=== PATIENT | male | born 1970 | race African-American/Black ===

== ENCOUNTER 2018-10-22 16:04 | Emergency (ER) | payer OTHER ==
[2018-10-22 16:16] VITALS: BP 109/66; PULSE 79; TEMP 97.6; BMI 28.1
--- NOTE | 2018-10-22 16:25 | PDOC ---
History of Present Illness - General Chief Complaint: Injury Stated Complaint: LEFT THIGH LACERATION Time Seen by Provider: 10/22/18 16:13 History Source: Patient Exam Limitations: No Limitations - History of Present Illness Initial Comments: 48 yo M with no past medical history presents to the emergency department with laceration to the anterior left thigh after an intact piece of glass fell onto his thigh. Per the patient, he states he was moving a glass furniture piece when it made contact with his skin. Denies the glass shattering. Denies loss of sensation, loss of motor function, fevers, chills, discoloration of the skin, and leg swelling. Allergies: NKDA Shx: None Social: Denies tobacco, alcohol, and substance abuse. Past History - Past Medical History Allergies/Adverse Reactions: Allergies Allergy/AdvReac Type Severity Reaction Status Date / Time No Known Drug Allergies Allergy Verified 10/22/18 16:07 pollen extracts Allergy Verified 10/22/18 16:07 Home Medications: Ambulatory Orders NK [No Known Home Medication] 10/22/18 COPD: No - Suicide/Smoking/Psychosocial Hx Smoking History: Current every day smoker Have you smoked in the past 12 months: Yes Number of Cigarettes Smoked Daily: 3 Information on smoking cessation initiated: Yes 'Breaking Loose' booklet given: 04/22/14 Hx Alcohol Use: No Drug/Substance Use Hx: Yes Substance Use Type: None Review of Systems - Review of Systems Able to Perform ROS?: Yes Is the patient limited [place] proficient: No Constitutional: No: Chills, Diaphoresis, Fever, Weakness HEENTM: No: Eye Pain, Recent change in vision, Ear Pain, Nose Pain, Throat Pain , Mouth Pain Respiratory: No: Cough, Shortness of Breath, SOB with Exertion Cardiac (ROS): No: Chest Pain, Lightheadedness, Palpitations, Syncope, Chest Tightness ABD/GI: No: Constipated, Diarrhea, Nausea, Rectal Bleeding, Vomiting, Tarry Stools : No: Burning, Dysuria, Hematuria, Incontinence, Testicular Swelling Musculoskeletal: No: Back Pain, Joint Pain, Neck Pain Integumentary: No: Bruising, Erythema, Rash Neurological: No: Headache, Numbness, Tingling, Tremors Psychiatric: No: Change in Appetite Endocrine: No: Unexplained Weight Gain Hematologic/Lymphatic: No: Anemia *Physical Exam - Vital Signs Last Vital Signs Temp Pulse Resp BP Pulse Ox 97.6 F 79 18 109/66 99 10/22/18 16:04 10/22/18 16:04 10/22/18 16:04 10/22/18 16:04 10/22/18 16:04 - Physical Exam General Appearance: Yes: Nourished, Appropriately Dressed. No: Apparent Distress, Intoxicated HEENT: positive: EOMI, HUBER, Normal Voice, Symmetrical, Pharynx Normal, Hearing Grossly Normal. negative: Pale Conjunctivae, Scleral Icterus (R), Scleral Icterus (L), Muffled/Hoarse voice, Pharyngeal Erythema, Tonsillar Exudate, Tonsillar Erythema, Nasal Congestion, Rhinorrhea, Sinus Tenderness, Excessive drooling Neck: positive: Trachea midline, Supple. negative: Tender, Lymphadenopathy (R) , Lymphadenopathy (L), Tender lateral, Tender midline Respiratory/Chest: positive: Lungs Clear, Normal Breath Sounds. negative: Chest Tender, Respiratory Distress, Accessory Muscle Use, Crackles, Rales, Rhonchi, Stridor, Wheezing Cardiovascular: positive: Regular Rhythm, Regular Rate, S1, S2. negative: Systolic Murmur Gastrointestinal/Abdominal: positive: Normal Bowel Sounds, Flat, Soft. negative : Tender, Distended, Guarding, Rebound Lymphatic: negative: Adenopathy Musculoskeletal: positive: Normal Inspection. negative: CVA Tenderness, Vertebral Tenderness Extremity: positive: Normal Capillary Refill, Normal Range of Motion. negative : Normal Inspection (left anterior thigh simple laceration with clean edges 2.5cmx0.5 cm. ), Tender, Swelling, Calf Tenderness Integumentary: positive: Normal Color, Dry, Warm Neurologic: positive: television news video editor II-XII NML intact, Fully Oriented, Alert, Normal Mood/ Affect, Normal Response, Motor Strength 5/5. negative: EOM Palsy, Facial Droop , Sensory Deficit Procedures - Laceration/Wound Repair Left Anterior Thigh Wound Length: to 2.5 cm Wound Explored: clean Wound's Depth, Shape: superficial Irrigated w/ Saline: Yes Betadine Prep: Yes Anesthesia: 1% Lidocaine Amount of Anesthetic (ccs): 5 Wound Debrided: minimal Wound Repaired With: Sutures Suture Size/Type: 3:0 Number of Sutures: 5 Sterile Dressing Applied: Yes Splint Applied: No Sling Applied: No Medical Decision Making - Medical Decision Making 10/22/18 17:23 48 yo M with no past medical history presents to the emergency department with laceration to the anterior left thigh after an intact piece of glass fell onto his thigh. Initial vitals; Initial Vital Signs Temp Pulse Resp BP Pulse Ox 97.6 F 79 18 109/66 99 10/22/18 16:04 10/22/18 16:04 10/22/18 16:04 10/22/18 16:04 10/22/18 16:04 Work up: laceration. patient does not recall when last tetanus was but was >5 years ago. Patient to receive tetanus. Laceration repaired with 3-0 sutures (refer to procedure note). will follow up with PMD Dispo: Discharge *DC/Admit/Observation/Transfer Diagnosis at time of Disposition: Laceration - Discharge Dispostion Disposition: HOME Condition at time of disposition: Stable Decision to Admit order: No - Referrals Referrals: [facility] [place] [Provider Group] - Patient Instructions Printed Discharge Instructions: DI for Laceration Repair Additional Instructions: you were seen for the evaluation of your laceration. please have the sutures removed by our ED, another ED, or your primary medical doctor in 10-14 days for removal. please return if you have fever, chills, red streaks from the site of suturing, and if the sutures fall off early. thank you. - Post Discharge Activity
--- NOTE | 2018-10-22 16:36 | PDOC ---
Attending Attestation - Resident Resident Name: Robin Woods - ED Attending Attestation I have performed the following: I have examined & evaluated the patient, The case was reviewed & discussed with the resident, I agree w/resident's findings & plan, Exceptions are as noted - HPI HPI: 10/22/18 16:34 48y M no mphx presents with L thigh laceratin - pt was carrying a large plate of galss that broke while they were carrying it and a peice fell on the floor and cut his leg on the way down. no other injuries. glass did not shatter, only broke in large peices. no assoc numbnes/tingling/wkaness. last tetanus was a long time ago exam: L thigh: approx 2cm laceration, superficial, clean amrgins, no fb, no active bleeding will close laceration with sutures after irrigation will update tetanus - Physicial Exam PE: 10/24/18 16:39 see above - Medical Decision Making laceration closed by dr. woods under my supervision - good apprximation using simple interrupted bacitracin applied return precautions were ddiscussed
[2018-10-22] MEDS ORDERED: DIPHTH,PERTUSS(ACELL),TET 0.5 ML DISP.SYRIN IM ONE ×2 (17:27→17:35)
== END 2018-10-22 17:45 | disposition home or self-care (01) ==
LOC: FER 16:04
PROC: 0HQJXZZ Repair Left Upper Leg Skin, External Approach (ICD-10-PCS; principal; 2018-10-22)
PROC: 3E0234Z Introduction of Serum, Toxoid and Vaccine into Muscle, Percutaneous Approach (ICD-10-PCS; 2018-10-22)
DX: S71.112A Laceration without foreign body, left thigh, initial encounter (principal); W25.XXXA Contact with sharp glass, initial encounter; Y93.89 Activity, other specified; Y92.9 Unspecified place or not applicable; F17.210 Nicotine dependence, cigarettes, uncomplicated
CPT/HCPCS: 90715; 99283-25

== ENCOUNTER 2021-04-21 23:19 | Emergency (ER) | payer BC ==
[2021-04-21 23:25] VITALS: TEMP 98.1; BMI 28.1
[2021-04-21] MEDS ORDERED: morphine SULFATE IMMEDIATE RELEASE 30 MG TAB PO ONE (23:39)
[2021-04-21] MEDS ORDERED: MAGNESIUM SULF 50% (8.12 MEQ/2 ML-1 GM VIAL) IVPB ONE (23:43)
[2021-04-21] MEDS ORDERED: SODIUM CHLORIDE 0.9% 500 ML INFUS.BAG IV ONE (23:43)
[2021-04-21] MEDS ORDERED: morphine SULFATE IMMEDIATE RELEASE 30 MG TAB ONE (23:53)
[2021-04-21] MEDS ORDERED: MAGNESIUM 1GM/D5W - 2 GM/200 ML IVPB IVPB ONE (23:53)
[2021-04-22 00:48] LABS: BASO % 0.7 % (0-2.0); HEMATOCRIT 37.1 % (35.4-49); HEMOGLOBIN 12.9 GM/dL (11.7-16.9); LYMPH % 33.4 % (8-40); MCH 33.3 pg (25.7-33.7); MCHC 34.9 g/dl (32.0-35.9); MEAN CELL VOLUME 95.5 fl (80-96); MEAN PLT VOLUME 7.5 fl (7.5-11.1); MONO % 6.5 % (3.8-10.2); NEUT % 57.4 % (42.8-82.8); PLATELET COUNT 207 10^3/uL (134-434); RBC 3.88 M/mm3 (4.00-5.60); RDW 14.2 % (11.9-15.9); WHITE BLOOD COUNT 8.8 K/mm3 (4.0-10.0)
[2021-04-22 01:03] LABS: CALCIUM 8.3 mg/dL (8.5-10.1)
[2021-04-22 01:07] LABS: CREATININE 1.3 mg/dL (0.55-1.3)
[2021-04-22 01:09] LABS: BILIRUBIN,TOTAL 0.3 mg/dL (0.2-1); TOT PROT 6.6 g/dl (6.4-8.2)
[2021-04-22] MEDS ORDERED: SODIUM CHLORIDE 0.9% 500 ML INFUS.BAG IV ONE (01:21)
[2021-04-22 01:40] VITALS: BP 107/61; PULSE 71
== END 2021-04-22 01:44 | disposition home or self-care (01) ==
LOC: FER 23:19
PROC: 3E033NZ Introduction of Analgesics, Hypnotics, Sedatives into Peripheral Vein, Percutaneous Approach (ICD-10-PCS; principal; 2021-04-21)
DX: F41.9 Anxiety disorder, unspecified (principal); M62.82 Rhabdomyolysis
CPT/HCPCS: 36415; 80053; 82550; 82553; 85025; 99284-25

== ENCOUNTER 2021-09-04 03:34 | Emergency (ER) | payer BC ==
[2021-09-04 03:40] VITALS: TEMP 98; BMI 28.1
[2021-09-04] MEDS ORDERED: SODIUM CHLORIDE 1,000 ML IV STA ×3 (03:47→06:13)
[2021-09-04 05:48] LABS: BASO % 0.6 % (0-2.0); EOS % 2.7 % (0-4.5); HEMATOCRIT 38.5 % (35.4-49); LYMPH % 32.8 % (8-40); MCH 32.3 pg (25.7-33.7); MCHC 33.8 g/dl (32.0-35.9); MEAN CELL VOLUME 95.7 fl (80-96); MEAN PLT VOLUME 7.9 fl (7.5-11.1); MONO % 8.7 % (3.8-10.2); NEUT % 55.2 % (42.8-82.8); PLATELET COUNT 235 10^3/uL (134-434); RBC 4.02 M/mm3 (4.00-5.60); RDW 14.2 % (11.9-15.9)
[2021-09-04 05:57] LABS: ALBUMIN 3.9 g/dl (3.4-5.0); BLOOD UREA NITROGEN 22.9 mg/dL (7-18); CALCIUM 8.6 mg/dL (8.5-10.1)
[2021-09-04 06:00] LABS: CREATININE 1.1 mg/dL (0.55-1.3)
[2021-09-04 06:02] LABS: BILIRUBIN,TOTAL 0.3 mg/dL (0.2-1); TOT PROT 6.5 g/dl (6.4-8.2)
[2021-09-04 08:01] LABS: ALBUMIN 3.3 g/dl (3.4-5.0); BILIRUBIN,TOTAL 0.5 mg/dl (0.2-1); CALCIUM 7.9 mg/dl (8.5-10); TOT PROT 5.6 g/dl (6.4-8.2)
[2021-09-04 08:38] VITALS: BP 122/69; PULSE 82
== END 2021-09-04 08:39 | disposition home or self-care (01) ==
LOC: FER 03:34
PROC: 3E0337Z Introduction of Electrolytic and Water Balance Substance into Peripheral Vein, Percutaneous Approach (ICD-10-PCS; principal; 2021-09-04)
DX: M62.82 Rhabdomyolysis (principal)
CPT/HCPCS: 36415; 80053; 81003; 82550; 82553; 85025; 99284-25

== ENCOUNTER 2021-09-05 22:22 | Emergency (ER) | payer BC ==
[2021-09-05] MEDS ORDERED: SODIUM CHLORIDE 0.9% 500 ML INFUS.BAG IV ONE ×2 (22:29→23:43)
[2021-09-05 22:31] VITALS: BP 115/67; PULSE 77; TEMP 98.7; BMI 28.1
[2021-09-05 23:08] LABS: INR 1.09 (0.83-1.09); PROTHROMBIN TIME (PATIENT) 12.5 SEC (9.7-13.0)
[2021-09-05 23:15] LABS: ALBUMIN 4.1 g/dl (3.4-5.0); BILIRUBIN,TOTAL 0.5 mg/dl (0.2-1); CALCIUM 8.9 mg/dl (8.5-10); CREATININE 1.1 mg/dl (0.55-1.3); MAGNESIUM 1.9 mg/dL (1.8-2.4); PHOSPHOROUS 3.6 mg/dl (2.5-4.9); TOT PROT 6.5 g/dl (6.4-8.2); URIC ACID 4.3 mg/dl (2.6-7.2)
[2021-09-05 23:48] LABS: BASO % 0.8 % (0-2.0); EOS % 2.5 % (0-4.5); HEMATOCRIT 37.8 % (35.4-49); MCH 32.6 pg (25.7-33.7); MCHC 34.4 g/dl (32.0-35.9); MEAN CELL VOLUME 94.7 fl (80-96); MEAN PLT VOLUME 7.6 fl (7.5-11.1); MONO % 9.5 % (3.8-10.2); NEUT % 49.2 % (42.8-82.8); PLATELET COUNT 234 10^3/uL (134-434); RBC 3.99 M/mm3 (4.00-5.60); RDW 14.5 % (11.9-15.9); VENOUS BASE EXCESS -2.8 mmol/L (-2-2); VENOUS O2 SATURATION 91.5 % (70-80); VENOUS PCO2 37.8 mmHg (38-52); VENOUS PH 7.38 (7.310-7.410); WHITE BLOOD COUNT 6.4 K/mm3 (4.0-10.0)
== END 2021-09-06 00:39 | disposition home or self-care (01) ==
LOC: FER 22:22
DX: M62.82 Rhabdomyolysis (principal)
CPT/HCPCS: 36415; 80053; 81003; 81015; 82550; 82553; 82803; 83735; 84100; 84484; 84550; 85025; 85610; 85730; 87086; 93005; 99284-25

== ENCOUNTER 2021-09-19 00:14 | Emergency (ER) | payer BC ==
[2021-09-19 00:21] VITALS: BP 112/55; PULSE 83; TEMP 97.9; BMI 28.8
[2021-09-19] MEDS ORDERED: SODIUM CHLORIDE 1,000 ML IV ONE ×2 (00:32→00:33)
[2021-09-19 01:34] LABS: BASO % 1.1 % (0-2.0); EOS % 4.4 % (0-4.5); HEMATOCRIT 37.8 % (35.4-49); HEMOGLOBIN 12.9 GM/dL (11.7-16.9); MCH 32.4 pg (25.7-33.7); MEAN CELL VOLUME 95.1 fl (80-96); MEAN PLT VOLUME 7.5 fl (7.5-11.1); MONO % 11.1 % (3.8-10.2); NEUT % 28.4 % (42.8-82.8); PLATELET COUNT 192 10^3/uL (134-434); RBC 3.97 M/mm3 (4.00-5.60); RDW 14.7 % (11.9-15.9); WHITE BLOOD COUNT 5.3 K/mm3 (4.0-10.0)
[2021-09-19 01:51] LABS: ALBUMIN 3.5 g/dl (3.4-5.0); BLOOD UREA NITROGEN 19.8 mg/dL (7-18); CALCIUM 8.1 mg/dL (8.5-10.1); MAGNESIUM 2.2 mg/dL (1.8-2.4)
[2021-09-19 01:55] LABS: CREATININE 1.3 mg/dL (0.55-1.3)
[2021-09-19 01:57] LABS: BILIRUBIN,TOTAL 0.2 mg/dL (0.2-1); TOT PROT 6.2 g/dl (6.4-8.2)
== END 2021-09-19 02:14 | disposition home or self-care (01) ==
LOC: FER 00:14
PROC: 3E0337Z Introduction of Electrolytic and Water Balance Substance into Peripheral Vein, Percutaneous Approach (ICD-10-PCS; principal; 2021-09-19)
DX: M79.10 Myalgia, unspecified site (principal)
CPT/HCPCS: 36415; 80053; 82550; 82553; 83735; 85025; 99284-25

== ENCOUNTER → 2023-06-03 | Emergency (ER) | payer BC ==
[~2023-06-03] MED LIST: KETOROLAC TROMETHAMINE 30 MG/1 ML VIAL IVPUSH ONE; KETOROLAC TROMETHAMINE 30 MG/1 ML VIAL ONE; SODIUM CHLORIDE 1,000 ML IV STA
[2023-06-03 21:22] VITALS: BP 115/85; PULSE 85; RESP 17; TEMP 98.2; BMI 28.1
[2023-06-03 22:20] LABS: HEMATOCRIT 41.6 % (35.4-49); HEMOGLOBIN 13.9 G/dL (11.7-16.9); MCH 32.4 pg (25.7-33.7); MCHC 33.3 g/dl (32.0-35.9); MEAN CELL VOLUME 97.3 fl (80-96); MEAN PLT VOLUME 7.4 fl (7.5-11.1); PLATELET COUNT 206.9 10^3/uL (134-434); RBC 4.28 10^6/uL (4.00-5.60); RDW 14.6 % (11.9-15.9); WHITE BLOOD COUNT 6.3 10^3/uL (4.0-10.8)
[2023-06-03 22:32] LABS: ALBUMIN 4.1 g/dl (3.4-5.0); BILIRUBIN,TOTAL 0.4 mg/dl (0.2-1); CREATININE 1.2 mg/dl (0.6-1.3); POTASSIUM 4.2 mmol/L (3.5-5.1); TOT PROT 5.9 g/dl (6.4-8.2)
[2023-06-03 23:13] LABS: PLATELET ESTIMATE ADEQUATE
== END | disposition left against medical advice (07) ==
LOC: FER 20:20
PROC: 3E0333Z Introduction of Anti-inflammatory into Peripheral Vein, Percutaneous Approach (ICD-10-PCS; principal; 2023-06-03)
PROC: 3E0337Z Introduction of Electrolytic and Water Balance Substance into Peripheral Vein, Percutaneous Approach (ICD-10-PCS; 2023-06-03)
DX: R07.9 Chest pain, unspecified (principal)
CPT/HCPCS: 36415; 71046-TC-FY; 80053; 85027; 93005; 99285-25

== ENCOUNTER 2024-01-12 09:35 | Emergency (ER) | payer BC ==
[2024-01-12 09:49] VITALS: BP 111/60; PULSE 80; RESP 20; TEMP 97.5; BMI 28.1
== END 2024-01-12 10:36 | disposition home or self-care (01) ==
LOC: FER 09:35
PROC: 0XQLXZZ Repair Right Thumb, External Approach (ICD-10-PCS; principal; 2024-01-12)
DX: S61.011A Laceration without foreign body of right thumb without damage to nail, initial encounter (principal); W26.0XXA Contact with knife, initial encounter
CPT/HCPCS: 99283-25

== ENCOUNTER 2024-05-06 11:06 | Emergency (ER) | payer BC ==
[2024-05-06] MEDS ORDERED: ONDANSETRON 4 MG/2 ML VIAL ONE (11:26)
[2024-05-06] MEDS ORDERED: ACETAMINOPHEN INJECTION 100 ML ONE (11:27)
[2024-05-06 11:29] VITALS: BP 120/66; PULSE 74; RESP 18; TEMP 97.2; BMI 28.5
[2024-05-06] MEDS: ONDANSETRON 4 MG/2 ML VIAL IVPUSH ONE (11:30)
[2024-05-06 11:34] LABS: HEMATOCRIT 44.6 % (35.4-49); HEMOGLOBIN 15.1 G/dL (11.7-16.9); MCHC 33.9 g/dl (32.0-35.9); MEAN CELL VOLUME 97.2 fl (80-96); MEAN PLT VOLUME 7.6 fl (7.5-11.1); PLATELET COUNT 210.7 10^3/uL (134-434); RBC 4.59 10^6/uL (4.00-5.60); RDW 13.8 % (11.9-15.9); WHITE BLOOD COUNT 5.8 10^3/uL (4.0-10.8)
[2024-05-06] MEDS: ACETAMINOPHEN 1000 MG/100 ML BAG IVPB ONE (11:34)
[2024-05-06 12:00] LABS: ALBUMIN 4.5 g/dl (3.4-5.0); BILIRUBIN,TOTAL 0.5 mg/dl (0.2-1); CALCIUM 9.6 mg/dl (8.5-10.1); CREATININE 1.1 mg/dl (0.6-1.3); MAGNESIUM 1.8 mg/dL (1.8-2.4); POTASSIUM 4.2 mmol/L (3.5-5.1); TOT PROT 6.8 g/dl (6.4-8.2)
[2024-05-06] MEDS: SODIUM CHLORIDE 1,000 ML IV STA (13:03)
[2024-05-06] MEDS ORDERED: FAMOTIDINE 20 MG/50 ML IVPB 20 MG/50 ML MG IVPB ONE (13:04)
[2024-05-06] MEDS: FAMOTIDINE 20 MG/50 ML IVPB 20 MG/50 ML MG IVPB ONE (13:10)
[2024-05-06 14:15] LABS: HIV INTERPRETATION NEGATIVE (NEGATIVE)
== END 2024-05-06 14:31 | disposition home or self-care (01) ==
LOC: FER 11:06
PROC: 3E033GC Introduction of Other Therapeutic Substance into Peripheral Vein, Percutaneous Approach (ICD-10-PCS; principal; 2024-05-06)
PROC: 3E033NZ Introduction of Analgesics, Hypnotics, Sedatives into Peripheral Vein, Percutaneous Approach (ICD-10-PCS; 2024-05-06)
PROC: 3E033GC Introduction of Other Therapeutic Substance into Peripheral Vein, Percutaneous Approach (ICD-10-PCS; 2024-05-06)
DX: R55 Syncope and collapse (principal); R53.1 Weakness; M62.82 Rhabdomyolysis; R11.2 Nausea with vomiting, unspecified; R42 Dizziness and giddiness; M79.10 Myalgia, unspecified site
CPT/HCPCS: 36415; 70450-TC; 80053; 82550; 82553; 83690; 83735; 84443; 84484; 85027; 86803; 87389; 93005; 99285-25; J0131